=== PATIENT | female | born 1955 | race Caucasian/White ===

== ENCOUNTER 2021-01-01 06:37 | Day surgery (SDC) | payer MEDICARE, BC ==
[~2021-01-01] VITALS: Ht 160 cm; Wt 73.8 kg
[~2021-01-01 06:37] MED LIST: BUPR150ER; CLOB.05TO; Estrace Vagin42.5 GM; FLUO10; LEVSOD25 PO; THERA-D2000 UNIT; TUMS500 MG
== END 2021-01-01 09:23 | disposition home or self-care (01) ==
LOC: ORSCSDS 06:37
PROVIDERS: Student in an Organized Health Care Education/Training Program
PROC: 0DBL8ZX Excision of Transverse Colon, Via Natural or Artificial Opening Endoscopic, Diagnostic (ICD-10-PCS; principal; 2021-01-01 08:00)
PROC: 0DBP8ZX Excision of Rectum, Via Natural or Artificial Opening Endoscopic, Diagnostic (ICD-10-PCS; principal; 2021-01-01 08:00)
PROC: 0DBM8ZX Excision of Descending Colon, Via Natural or Artificial Opening Endoscopic, Diagnostic (ICD-10-PCS; principal; 2021-01-01 08:00)
PROC: 0DBK8ZX Excision of Ascending Colon, Via Natural or Artificial Opening Endoscopic, Diagnostic (ICD-10-PCS; principal; 2021-01-01 08:00)
DX: Z12.11 Encounter for screening for malignant neoplasm of colon (principal); D12.2 Benign neoplasm of ascending colon; D12.3 Benign neoplasm of transverse colon; D12.4 Benign neoplasm of descending colon; K62.1 Rectal polyp; Z87.891 Personal history of nicotine dependence; Z79.899 Other long term (current) drug therapy
CPT/HCPCS: 88305; J2405; J2704; J7040; J7120